=== PATIENT | male | born 1985 | race Caucasian/White ===

== ENCOUNTER 2024-07-02 16:34 | Inpatient (IN) | payer BC, SELFPAY ==
--- NOTE | 2024-07-02 16:35 | ED.C_ITS ---
HPI - Psych 2 General: Chief Complaint: Psychiatric Symptoms Stated Complaint: 96 hold Time Seen by Provider: 07/02/24 16:34 Source: patient and police Mode of arrival: ambulatory Limitations: no limitations History of Present Illness: 39-year-old male has a history of schizo phrenia bipolar along with methamphetamine abuse he is brought in by police under 96-hour hold he states that he has been hallucinating has not been taking his meds he also been having suicidal statements he is quite paranoid here. Associated symptoms: Reports auditory hallucinations, depression and suicidal ideation Review of Systems 2 Const: Denies: fever(s), chills, body aches or change in appetite ENMT: Denies: throat pain or dental pain Card: Denies: chest pain Resp: Denies: dyspnea GI: Denies: abdominal pain, nausea, vomiting or diarrhea Musc: Denies: neck pain or back pain Skin/Breast: Denies: rash Neuro: Denies: headache(s) Psych: Reports: depression, paranoia, auditory hallucinations and suicidal ideation Physical Exam 2 Const: COMMON NORMALS: patient oriented x3 HENMT: COMMON NORMALS: normocephalic and atraumatic HEAD & SCALP: n ormocephalic and atraumatic Neck/C-Spine: COMMON NORMALS: full ROM and supple Chest: COMMONS NORMALS: normal inspection of the chest Resp: COMMON NORMALS: normal respiratory effort Cardio: COMMON NORMALS: regular rate, regular rhythm and No murmurs present (Cardio) RATE: regular rate RHYTHM: regular rhythm Extremity: COMMON NORMALS: normal to inspection and full ROM Neuro: COMMON NORMALS: patient oriented x3, moves all extremities and no focal motor deficits Psych: COMMON NORMALS: mental status grossly normal and Normal thought process present APPEARANCE: Yes disheveled ATTITUDE: Yes paranoid THOUGHT PROCESS: Normal thought process present THOUGHT CONTENT: Yes Suicidality present Skin: COMMON NORMALS: no rashes or lesions noted and no wounds GENERAL SKIN EXAM: no rashes or lesions noted Course 2 Vital Signs: Vital signs: Vital Signs Pulse Rate 80 07/02/24 16:46 Respiratory Rate 16 07/02/24 16:46 Blood Pressure 133/61 07/02/24 16:46 Pulse Oximetry 97 07/02/24 16:46 Oxygen Delivery Me thod Room Air 07/02/24 16:46 MDM - Psych Medical Decision Making Patient presents here with suicidal ideation with acute psychosis and meth abuse I spoke to psychiatrist will admit he is medically cleared. Medical Records I reviewed the patient's medical records. Lab Data I reviewed the patient's lab results. 07/02/24 16:44 07/02/24 16:44 Laboratory Results WBC 16.16 10^3/uL (3.29-11.43) H 07/02/24 16:44 RBC 4.56 10^6/uL (3.85-5.65) 07/02/24 16:44 Hgb 13.40 g/dL (11.27-16.99) 07/02/24 16:44 Hct 40.9 % (37-53) 07/02/24 16:44 MCV 89.7 fl (82-101) 07/02/24 16:44 MCH 29.4 pg (27-33) 07/02/24 16:44 MCHC 32.8 g/dL (30-55) 07/02/24 16:44 RDW 15.7 % (12.1-15.1) H 07/02/24 16:44 Plt Count 398 10^3/cmm (157-399) 07/02/24 16:44 MPV 9.6 fL (7.4-10.4) 07/02/24 16:44 Neut % (Auto) 74.2 % 07/02/24 16:44 Lymph % (Auto) 15.7 % 07/02/24 16:44 Cannon % (Auto) 7.1 % 07/02/24 16:44 Eos % (Auto) 1.5 % 07/02/24 16:44 Baso % (Auto) 0.9 % 07/02/24 16:44 Neut # (Auto) 12.01 10^3/uL (1.8-7.7) H 07/02/24 16:44 Lymph # (Auto) 2.5 10^3/uL (0.8-4.8) 07/02/24 16:44 Cannon # (Auto) 1.1 10^3/uL (0.2-0.9) H 07/02/24 16:44 Eos # (Auto) 0.2 10^3/uL (0.0-0.8) 07/02/24 16:44 Baso # (Auto) 0.1 10^3/uL (0.0-0.1) 07/02/24 16:44 Nucleated RBC % (auto) 0 % 07/02/24 16:44 Nucleated RBCs # 0.0 /100WBC 07/02/24 16:44 Sodium 139 mmol/L (136-145) 07/02/24 16:44 Potassium 4.3 mmol/L (3.5-5.1) 07/02/24 16:44 Chloride 106 mmol/L (98-107) 07/02/24 16:44 Carbon Dioxide 22 mmol/L (22-29) 07/02/24 16:44 Anion Gap 15.3 (5-19) 07/02/24 16:44 BUN 20 mg/dL (6-20) 07/02/24 16:44 Creatinine 0.7 mg/dL (0.7-1.2) 07/02/24 16:44 GFR Calculation 126.9 mL/min (90-130) 07/02/24 16:44 Glucose 92 mg/dL (65-115) 07/02/24 16:44 Calculated Osmolality 290 mOsm/kg (285-295) 07/02/24 16:44 Calcium 9.1 mg/dL (8.5-10.5) 07/02/24 16:44 Total Bilirubin 1.0 mg/dL (0.15-1.2) 07/02/24 16:44 AST 18 U/L (0-40) 07/02/24 16:44 ALT 25 U/L (0-41) 07/02/24 16:44 Alkaline Phosphatase 106 U/L (40-130) 07/02/24 16:44 Total Protein 7.4 g/dL (6.6-8.7) 07/02/24 16:44 Albumin 4.3 g/dL (3.5-5.2) 07/02/24 16:44 Globulin 3.1 g/dL (1.3-4.6) 07/02/24 16:44 Salicylates < 0.3 mg/dL (3-10) L 07/02/24 16:44 Urine Opiates Screen Negative ng/mL (Negative) 07/02/24 16:35 Acetaminophen < 5.0 ug/mL (10-30) L 07/02/24 16:44 Ur Barbiturates Screen Negative ng/mL (Negative) 07/02/24 16:35 Ur Phencyclidine Scrn Negative ng/mL (Negative) 07/02/24 16:35 Ur Amphetamines Screen Positive ng/mL (Negative) H 07/02/24 16:35 U Benzodiazepines Scrn Negative ng/mL (Negative) 07/02/24 16:35 Urine Cocaine Screen Negative ng/mL (Negative) 07/02/24 16:35 U Marijuana (THC) Screen Positive ng/mL (Negative) H 07/02/24 16:35 Ethyl Alcohol < 10 mg/dL (0-10) 07/02/24 16:44 No radiology studies performed this visit Discharge Plan Discharge Patient Disposition: Admitted As Inpatient Clinical Impression: Suicidal ideation, Acute psychosis Condition: Stable Coding Level of Care Code ED Bobbin Disker for Tiffanie Ha
[2024-07-02 16:46] VITALS: BP 133/61; PULSE 80; RESP 16; O2SAT 97
[2024-07-02 16:50] LABS: Basophils # 0.1 10^3/uL (0.0-0.1); Basophils % 0.9 %; Eosinophils # 0.2 10^3/uL (0.0-0.8); Eosinophils % 1.5 %; Hematocrit 40.9 % (37-53); Lymphocytes # 2.5 10^3/uL (0.8-4.8); Lymphocytes % 15.7 %; Mean Corpuscular HGB Conc 32.8 g/dL (30-55); Mean Corpuscular Hemoglobin 29.4 pg (27-33); Mean Corpuscular Volume 89.7 fl (82-101); Mean Platelet Volume 9.6 fL (7.4-10.4); Monocytes # 1.1 10^3/uL (0.2-0.9); Monocytes % 7.1 %; Neutrophils # 12.01 10^3/uL (1.8-7.7); Neutrophils % 74.2 %; Nucleated Red Blood Cells % 0 %; Platelet Count 398 10^3/cmm (157-399); Red Blood Count 4.56 10^6/uL (3.85-5.65); Red Cell Distribution Width 15.7 % (12.1-15.1); White Blood Count 16.16 10^3/uL (3.29-11.43)
[2024-07-02] MEDS: LORazepam 1 MG/0.5 ML injection 2 MG IM (17:01)
[2024-07-02] MEDS: haloperidol inj 5 mg/mL INJ 1 mL IM (17:01)
[2024-07-02 17:16] LABS: Amphetamines Screen Urine Positive (Negative); Barbiturates Screen Urine Negative (Negative); Benzodiazepines Screen Urine Negative (Negative); Cocaine Screen Urine Negative (Negative); Opiate Screen Urine Negative (Negative); PCP Screen Urine Negative (Negative); THC Screen Urine Positive (Negative)
[2024-07-02 17:20] LABS: Alanine Aminotransferase 25 U/L (0-41); Albumin Level 4.3 g/dL (3.5-5.2); Alkaline Phosphatase 106 U/L (40-130); Anion Gap 15.3 (5-19); Aspartate Amino Transferase 18 U/L (0-40); Blood Urea Nitrogen 20 mg/dL (6-20); Calcium 9.1 mg/dL (8.5-10.5); Carbon Dioxide 22 mmol/L (22-29); Chloride 106 mmol/L (98-107); Globulin 3.1 g/dL (1.3-4.6); Glomerular Filtration Rate 126.9 mL/min (90-130); Glucose 92 mg/dL (65-115); Osmolality Calculated 290 mOsm/kg (285-295); Potassium 4.3 mmol/L (3.5-5.1); Sodium 139 mmol/L (136-145); Total Protein 7.4 g/dL (6.6-8.7)
[2024-07-02 17:21] LABS: Acetaminophen < 5.0 ug/mL (10-30); Alcohol Level < 10 mg/dL (0-10); Salicylate < 0.3 mg/dL (3-10)
--- NOTE | 2024-07-02 17:30 | PC.NURSE ---
96 hr rights reviewed with pt @[id number] with assistance of [facility] cyber security manager Wyatt Dixon All education reviewed with pt at this time. The only verbalized question pt had for HS was asking where he would go once being discharged from [facility]. And then followed his question, asking if we would call the police as he had warrants. HS explained that after pt was DC'd from facility, it was not in our common practice to contact law enforcement with such details, and the conduction of outside law enforcement plans was not within [facility]'s plan of care. Pt copy was left @bedside with pt. Pt declined any further needs for HS at this time. Pt had already been provided with a sandwich and soda.
[2024-07-02 17:37] VITALS: BP 128/66; PULSE 76; RESP 16; TEMP 36.6; O2SAT 97
--- NOTE | 2024-07-02 18:09 | PC.ADMIT ---
[address] Admission Note:Pt was brought in by PD on a 96 hour hold. He had reported SI with a plan to cut himself. In the ER he was given Ativan 2mg and Haldol 5mg IM. He was positive for Meth and THC. Pt was brought to the floor at 1736 by security and ER nurse, he transfered by himself from wheelchair to bench. Pt walked to his room and changed his clothes. He cannot stay awake to answer even simple yes or no questions. This nurse asked pt why he was here and he states suicidal . He couldn't answer me what his plan was or what is causing him to be suicidal. Allowed pt to just lay down and rest. The patient,Odell Wilkinson,39 y/o, was given written information regarding hospital policies, unit procedures and contact persons. Patient's smoking status: . Vital Signs - 8 hr 07/02/24 16:46 07/02/24 17:37 07/02/24 17:39 Temperature 97.8 F Pulse Rate 80 76 Respiratory Rate 16 16 Blood Pressure 133/61 128/66 Pulse Oximetry 97 97 Oxygen Delivery Method Room Air Room Air
[2024-07-02 19:36] VITALS: BP 126/73; PULSE 76; RESP 18; O2SAT 97
[2024-07-03 06:00] VITALS: BP 137/81; PULSE 72; RESP 18; TEMP 36.6; O2SAT 97
[2024-07-03 14:00] VITALS: BP 116/73; PULSE 62; RESP 16; TEMP 36.7; O2SAT 96
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
[2024-07-03] MEDS: nicotine 4 mg lozenge MUCOUS MEM ×2 (17:31→19:46)
[2024-07-03 19:57] VITALS: BP 135/84; PULSE 100; RESP 18; TEMP 36.7; O2SAT 98
[2024-07-03 20:20] VITALS: BMI 23.4
[2024-07-03] MEDS: paliperidone ER 3 mg Tablet PO (20:29)
[2024-07-03] MEDS: OLANZapine 5 mg ODT PO (20:29)
[2024-07-03] MEDS: acetaminophen 325 mg Tablet 650 MG PO (20:29)
[2024-07-03] MEDS: hyDROXYzine 25 mg Capsule 50 MG PO (21:21)
[2024-07-03] MEDS: ibuprofen 600 mg Tablet PO (21:26)
[2024-07-04 06:00] VITALS: BP 137/80; PULSE 75; RESP 16; O2SAT 99
--- NOTE | 2024-07-04 09:11 | PC.NURSE ---
Patient is quietly resting in bed without distress. Nursing assessment completed. Patient rates anxiety 03/01 and depression 03/01. He denies SI/HI/ AVH. Patient is cooperative with care.
[2024-07-04] MEDS: nicotine 4 mg lozenge MUCOUS MEM ×5 (10:49→21:52)
[2024-07-04 14:00] VITALS: BP 160/99; PULSE 121; RESP 18; TEMP 37.1; O2SAT 96
--- NOTE | 2024-07-04 14:37 | P.NPUPN_ITS ---
Subjective NPU 2 Subjective: 39-year-old male with a history of schiz ophrenia along with methamphetamine abuse positive for methamphetamine on admission. Patient had minimized having any suicidal or homicidal thoughts. He had reported that he was distracted by his thoughts and reported he would like to consider inpatient substance abuse treatment if available. He had reported no feelings of hopelessness. He had reported some difficulties falling asleep and requested that he be placed back on Seroquel at night in addition to the Invega to help with his sleep. Patient had isolated himself on the milieu. He reported no side effects from his medication regimen. Mental Status Exam 2 MSE Comments: The patient is a healthy white male who appeared his stated age with fair hygiene and normal gait. There was no evidence of any abnormal involuntary motor movements, tics, or tremors appear appreciated. There was some mild psychomotor agitation and he remained guarded on interview. His speech was monotone in quality with normal volume and rate. His mood was described as okay. His affect was irritable and mood congruent. His thought process was linear, logical, and goal-directed. His thought content revealed no active homicidal or suicidal ideation. He did endorse hearing voices not command in nature today. He did not appear to be responding to internal stimuli. There was no evidence of delusional thinking although there was some ideas of reference and paranoia. He was alert and oriented to person, place, time, and situation. His attention span appeared poor. His insight was poor. His judgment was poor. His impulse control appeared limited. Vitals/I&O/Wt Last Vital Signs Temp 98.8 F 07/04/24 14:00 Pulse 121 H 07/04/24 14:00 Resp 18 07/04/24 14:00 BP 160/99 07/04/24 14:00 Pulse Ox 96 07/04/24 14:00 O2 Del Method Room Air 07/02/24 17:39 Weight last 48 hrs Weight 71.923 kg Data NPU 07/02/24 16:44 07/02/24 16:44 A&P Assessment and plan (1) Acute psychosis: (2) Schizophrenia: (3) Methamphetamine abuse: (4) Suicidal ideation: Plan 39-year-old male with complaints of auditory hallucinations along with active methamphetamine abuse currently admitted on a 96-hour hold after allegedly suicidal ideation which the patient now denies. Patient was agreeable to a change in medication regimen to target psychosis. He also appeared motivated to consider inpatient substance abuse treatment. #1.? Engage patient in individual milieu and group therapy. #2?? Recommend sober living treatment at the highest level of care to which the patient is willing to commit #3???Increase invega 6mg at night to target psychosis. Add seroquel 50mg at night. #4?? TO-15 minute checks? #5?? Will attempt to gather collateral information-check hepatitis panel, acute and chronic. - PDMP PDMP Reviewed: Not Reviewed Involuntary Hold Information 2 Hold Status: Legal Status: 96 Hour Hold Date/Time Hold Expires: @16:40 Attestations NPU 2 Medical Necessity Statement*: Inpatient hospitalization is medically necessary and deemed to ?be ?the clinically appropriate intervention ?at this time.? We will monitor/initiate medications and make changes as indicated.? The patient?s likely length of stay 4-6 days. Coding Level of Care Code Acute Code for Chg Fwd Diagnoses Acute psychosis F23 Schizophrenia F20.9 Methamphetamine abuse F15.10 Suicidal ideation R45.858
[2024-07-04 15:55] LABS: Hepatitis A Antibody IgM Non-Reactive (Nonreactive); Hepatitis B Core AB, Total Non-Reactive (Nonreactive); Hepatitis B Surface AB 91.1 (11.5-1000); Hepatitis B Surface Antigen Non-Reactive (Nonreactive)
[2024-07-04] MEDS: hyDROXYzine 25 mg Capsule 50 MG PO (17:01)
--- NOTE | 2024-07-04 17:01 | PC.NURSE ---
Vistaril Patient visibly anxious and voices anxiety about placement. Patient says that he is JEANETTE . Patient given vistaril 50mg PO and provided with additional resources.
[2024-07-04 20:21] VITALS: BP 142/85; PULSE 98; RESP 17; TEMP 36.8; O2SAT 97
[2024-07-04] MEDS: paliperidone ER 6 mg Tablet PO (21:14)
[2024-07-04] MEDS: quetiapine 25 mg Tablet 50 MG PO (21:14)
[2024-07-04] MEDS: trazodone 50 mg Tablet PO (21:14)
[2024-07-05 04:22] LABS: Hepatitis C Virus Antibody Reactive (Nonreactive)
[2024-07-05 06:00] VITALS: BP 120/72; PULSE 84; RESP 17; TEMP 36.7; O2SAT 99
[2024-07-05] MEDS: nicotine 4 mg lozenge MUCOUS MEM ×8 (07:37→16:52)
[2024-07-05] MEDS: acetaminophen 325 mg Tablet 650 MG PO (08:19)
[2024-07-05] MEDS: ibuprofen 600 mg Tablet PO (09:25)
[2024-07-05 14:00] VITALS: BP 144/96; PULSE 95; RESP 16; TEMP 36.4; O2SAT 100
[2024-07-05 14:52] VITALS: BP 120/72; PULSE 84; RESP 16; TEMP 36.7; O2SAT 99
[2024-07-09 15:40] LABS: HEP C RNA Viral Load Quant <1.18 NOT DETECTED Log IU/mL (NOT DETECTED); HEP C RNA Viral Load Quant <15 NOT DETECTED IU/mL (NOT DETECTED)
== END 2024-07-05 18:17 | disposition home or self-care (01) | DRG 885 ==
LOC: ER 17:24 → NP 17:30
PROVIDERS: Admitting Provider Psychiatry & Neurology Psychiatry; Emergency Provider Emergency Medicine; Visit Provider Psychiatry & Neurology Psychiatry
DX: F20.9 Schizophrenia, unspecified (principal); R45.851 Suicidal ideations; Z59.00 Homelessness unspecified; F15.10 Other stimulant abuse, uncomplicated; F31.9 Bipolar disorder, unspecified
CPT/HCPCS: 36415; 80053; 80306; 80307; 85025; 86705; 86706; 86709; 86803; 87340; 87522; 96372; 97150; 97165; 99285; J1630; J2060; J9999